=== PATIENT | female | born 1975 | race Asian ===

== ENCOUNTER 2025-07-07 09:06 | Outpatient (CLI) | payer OTHER ==
[2025-07-07 11:46] LABS: #Basophils 0.04 10x3/uL (0.0-0.2); #Eosinophils 0.49 10x3/uL (0.0-0.7); #Monocytes 0.50 10x3/uL (0.11-0.59); #Neutrophils 3.30 10x3/uL (1.40-6.50); %Basophils 0.7 % (0.0-1.0); %Eosinophils 8.1 % (0.0-10.0); %Lymphocytes 28.2 % (21.0-51.0); %Monocytes 8.3 % (0.0-10.0); %Neutrophils 54.4 % (42.0-75.0); Hematocrit 42.5 % (36.0-47.0); Hemoglobin 13.6 g/dL (12.0-16.0); Mean Corpuscular Hemoglobin 28.1 pg (27.0-31.0); Mean Corpuscular Volume 87.8 fL (78.0-98.0); Platelet Count 348 10x3/uL (130-400); Red Blood Cell (RBC) Count 4.84 mill/uL (4.20-5.40); White Blood Cell (WBC) Count 6.06 10x3/uL (4.8-10.8)
[2025-07-07 12:01] LABS: INR-International Normal Ratio 0.9; Prothrombin Time 12.3 sec (12.0-14.7)
[2025-07-07 12:12] LABS: ALT (SGPT) 31 U/L (Less than 34); AST (SGOT) 37 U/L (11-34); Albumin 4.2 g/dL (3.1-4.5); Alkaline Phosphatase 113 U/L (40-110); Anion Gap 13 mmol/L (10-20); BUN (Urea Nitrogen) 10 mg/dL (9.8-20.1); Bilirubin, Total 0.3 mg/dL (0.3-1.2); Calc. Creatinine Clearance 0 mL/min (70-130); Calcium 9.0 mg/dL (7.8-10.44); Carbon Dioxide 27 mmol/L (22-29); Chloride 107 mmol/L (98-107); Globulin 4.0 g/dL (2.4-3.5); Glucose 93 mg/dL (70-105); Potassium 4.6 mmol/L (3.5-5.1); Sodium 142 mmol/L (136-145)
== END 2025-07-07 09:07 | disposition home or self-care (01) ==
LOC: LABBT 09:06
PROVIDERS: ATTEND Student in an Organized Health Care Education/Training Program
DX: Z01.818 Encounter for other preprocedural examination (principal); M89.9 Disorder of bone, unspecified; M22.42 Chondromalacia patellae, left knee; M94.9 Disorder of cartilage, unspecified
CPT/HCPCS: 71046; 80053; 85025; 85610; 86850; 86900; 86901; 93005; 93010

== ENCOUNTER 2025-09-23 10:16 | Outpatient (CLI) | payer OTHER ==
[2025-09-23 11:01] LABS: #Basophils 0.04 10x3/uL (0.0-0.2); #Eosinophils 0.39 10x3/uL (0.0-0.7); #Monocytes 0.68 10x3/uL (0.11-0.59); #Neutrophils 3.53 10x3/uL (1.40-6.50); %Basophils 0.6 % (0.0-1.0); %Eosinophils 6.0 % (0.0-10.0); %Lymphocytes 28.6 % (21.0-51.0); %Monocytes 10.4 % (0.0-10.0); %Neutrophils 54.2 % (42.0-75.0); Hematocrit 41.9 % (36.0-47.0); Hemoglobin 13.1 g/dL (12.0-16.0); Mean Corpuscular Hemoglobin 27.8 pg (27.0-31.0); Mean Corpuscular Volume 88.8 fL (78.0-98.0); Platelet Count 361 10x3/uL (130-400); Red Blood Cell (RBC) Count 4.72 mill/uL (4.20-5.40); White Blood Cell (WBC) Count 6.51 10x3/uL (4.8-10.8)
[2025-09-23 11:19] LABS: INR-International Normal Ratio 0.9; Prothrombin Time 12.6 sec (12.0-14.7)
[2025-09-23 11:20] LABS: ALT (SGPT) 22 U/L (Less than 34); AST (SGOT) 28 U/L (11-34); Albumin 4.1 g/dL (3.1-4.5); Alkaline Phosphatase 100 U/L (40-110); Anion Gap 14 mmol/L (10-20); BUN (Urea Nitrogen) 9 mg/dL (9.8-20.1); Bilirubin, Total 0.2 mg/dL (0.3-1.2); Calc. Creatinine Clearance 0 mL/min (70-130); Calcium 9.7 mg/dL (7.8-10.44); Carbon Dioxide 26 mmol/L (22-29); Chloride 105 mmol/L (98-107); Globulin 4.1 g/dL (2.4-3.5); Glucose 72 mg/dL (70-105); Potassium 4.0 mmol/L (3.5-5.1); Sodium 141 mmol/L (136-145)
== END 2025-09-23 10:17 | disposition home or self-care (01) ==
LOC: LABBT 10:16
PROVIDERS: ATTEND Student in an Organized Health Care Education/Training Program
DX: Z01.818 Encounter for other preprocedural examination (principal); M89.9 Disorder of bone, unspecified; M94.8X6 Other specified disorders of cartilage, lower leg
CPT/HCPCS: 71046; 80053; 85025; 85610; 86850; 86900; 86901

== ENCOUNTER 2025-09-30 05:42 | Day surgery (SDC) | payer OTHER ==
[2025-09-23 10:30] VITALS: BMI 26.0
[2025-09-23 11:01] LABS: #Basophils 0.04 10x3/uL (0.0-0.2); #Eosinophils 0.39 10x3/uL (0.0-0.7); #Monocytes 0.68 10x3/uL (0.11-0.59); #Neutrophils 3.53 10x3/uL (1.40-6.50); %Basophils 0.6 % (0.0-1.0); %Eosinophils 6.0 % (0.0-10.0); %Lymphocytes 28.6 % (21.0-51.0); %Monocytes 10.4 % (0.0-10.0); %Neutrophils 54.2 % (42.0-75.0); Hematocrit 41.9 % (36.0-47.0); Hemoglobin 13.1 g/dL (12.0-16.0); Mean Corpuscular Hemoglobin 27.8 pg (27.0-31.0); Mean Corpuscular Volume 88.8 fL (78.0-98.0); Platelet Count 361 10x3/uL (130-400); Red Blood Cell (RBC) Count 4.72 mill/uL (4.20-5.40); White Blood Cell (WBC) Count 6.51 10x3/uL (4.8-10.8)
[2025-09-23 11:19] LABS: INR-International Normal Ratio 0.9; Prothrombin Time 12.6 sec (12.0-14.7)
[2025-09-23 11:20] LABS: ALT (SGPT) 22 U/L (Less than 34); AST (SGOT) 28 U/L (11-34); Albumin 4.1 g/dL (3.1-4.5); Alkaline Phosphatase 100 U/L (40-110); Anion Gap 14 mmol/L (10-20); BUN (Urea Nitrogen) 9 mg/dL (9.8-20.1); Bilirubin, Total 0.2 mg/dL (0.3-1.2); Calc. Creatinine Clearance 0 mL/min (70-130); Calcium 9.7 mg/dL (7.8-10.44); Carbon Dioxide 26 mmol/L (22-29); Chloride 105 mmol/L (98-107); Globulin 4.1 g/dL (2.4-3.5); Glucose 72 mg/dL (70-105); Potassium 4.0 mmol/L (3.5-5.1); Sodium 141 mmol/L (136-145)
[2025-09-30] MEDS ORDERED: Tranexamic Acid 1,000 MG/10 ML VIAL ONE (05:59)
[2025-09-30] MEDS ORDERED: Acetaminophen 500 MG TAB ONE (05:59)
[2025-09-30] MEDS ORDERED: CEFAZOLIN 2 GM VIAL ONE (05:59)
[2025-09-30] MEDS ORDERED: fentaNYL PF 100 MCG/2 ML SYRINGE ONE (06:57)
[2025-09-30] MEDS ORDERED: Rocuronium Bromide 10 MG/ML (10ML VIAL) ONE (06:57)
[2025-09-30] MEDS ORDERED: Lidocaine 1% PF 5 ML VIAL ONE (06:57)
[2025-09-30] MEDS ORDERED: Ondansetron PF 4 MG/2 ML Vial ONE ×2 (07:06→07:29)
[2025-09-30] MEDS ORDERED: PROPOFOL 200 MG/20 ML VIAL ONE (07:14)
[2025-09-30] MEDS ORDERED: PHENYLEPHRINE-NS 100 MCG/ML 10 ML SYRINGE ONE (07:28)
[2025-09-30] MEDS ORDERED: HYDROmorphone 2 MG/ML VIAL ONE (07:37)
[2025-09-30] MEDS ORDERED: Glycopyrrolate 0.2 MG/ML 5 ML SYRINGE ONE (08:22)
[2025-09-30] MEDS ORDERED: NEOSTIGMINE 3 MG/3 ML SYRINGE ONE (08:22)
== END 2025-09-30 11:50 | disposition home or self-care (01) ==
LOC: SDC 05:42
PROVIDERS: ATTEND Student in an Organized Health Care Education/Training Program
PROC: 0SQD4ZZ Repair Left Knee Joint, Percutaneous Endoscopic Approach (ICD-10-PCS; principal; 2025-09-30)
DX: M21.961 Unspecified acquired deformity of right lower leg (principal); M22.42 Chondromalacia patellae, left knee; E78.00 Pure hypercholesterolemia, unspecified; Z79.899 Other long term (current) drug therapy; Z91.013 Allergy to seafood
CPT/HCPCS: 80053; 85025; 85610; 86850; 86900; 86901; J0169; J0665; J1100; J1171; J2250; J2405; J2704; J3010

== ENCOUNTER 2025-11-17 09:43 | Outpatient (CLI) | payer OTHER | END 2025-11-17 09:44 | disposition home or self-care (01) | LOC: SCSMRI 09:43 | PROVIDERS: ATTEND Student in an Organized Health Care Education/Training Program | DX: G44.52 New daily persistent headache (NDPH) (principal); J34.89 Other specified disorders of nose and nasal sinuses | CPT/HCPCS: 70553; 76376 ==